=== PATIENT | female | born 2000 | race Caucasian/White ===

== ENCOUNTER 2024-04-09 17:40 | Emergency (ER) | payer SELFPAY ==
[2024-04-09] MEDS: Amoxicillin/Clavulanate K 875-125 MG Tab PO ONE (20:35)
[2024-04-09] MEDS: Acetaminophen/oxyCODONE 325-5 MG Tab PO ONE (20:35)
[2024-04-09] MEDS: Benzocaine 20% Topical Spray UD MUCMEM ONE (20:36)
[2024-04-09] MEDS: Lidocaine 2% Viscous Solution 15 ML UD PO ONE (20:36)
== END 2024-04-09 20:40 | disposition home or self-care (01) ==
LOC: MW.ED 17:40
DX: S02.5XXA Fracture of tooth (traumatic), initial encounter for closed fracture (principal); F17.210 Nicotine dependence, cigarettes, uncomplicated; Z75.8 Other problems related to medical facilities and other health care; X58.XXXA Exposure to other specified factors, initial encounter
CPT/HCPCS: 99282; A9270; 99283